=== PATIENT | male | born 2000 | race African-American/Black ===

== ENCOUNTER 2019-06-23 12:23 | Emergency (ER) | payer OTHER ==
[~2019-06-23] VITALS: Ht 175.3 cm; Wt 90.0 kg
[2019-06-23 13:40] VITALS: BP 138/76
== END 2019-06-23 13:40 | disposition home or self-care (01) | DRG 563 ==
LOC: ED 12:23
DX: S39.012A Strain of muscle, fascia and tendon of lower back, initial encounter (principal); V43.63XA Car passenger injured in collision with pick-up truck in traffic accident, initial encounter

== ENCOUNTER 2019-09-25 | Emergency (ER) | payer SELFPAY | END 2019-09-25 23:05 | disposition left against medical advice (07) | DRG 556 | DX: M25.571 Pain in right ankle and joints of right foot (principal); Z91.19 Patient's noncompliance with other medical treatment and regimen ==